=== PATIENT | male | born 1975 | race Caucasian/White ===

== ENCOUNTER 2024-03-31 07:34 | Outpatient (CLI) | payer BC, SELFPAY ==
--- NOTE | 2024-03-31 09:04 | W.ANESCHARGE ---
Anesthesia Charges Start Date/Time Anesthesia Start Date: 03/31/24 Anesthesia Start Time: 08:40 Stop Date/Time Anesthesia Stop Date: 03/31/24 Anesthesia Stop Time: 09:07
--- NOTE | 2024-03-31 10:25 | W.ANESCHARGE ---
Anesthesia Charges Start Date/Time Anesthesia Start Date: 03/31/24 Anesthesia Start Time: 08:40 Stop Date/Time Anesthesia Stop Date: 03/31/24 Anesthesia Stop Time: 09:07
== END 2024-03-31 07:35 | disposition home or self-care (01) ==
LOC: OP CLINIC 07:39
PROVIDERS: PCP Family Medicine; Visit Provider Internal Medicine Gastroenterology
DX: Z12.11 Encounter for screening for malignant neoplasm of colon (principal)
CPT/HCPCS: 00812; 45378; J2704